=== PATIENT | male | born 1940 | race Caucasian/White ===

== ENCOUNTER 2016-07-25 07:50 | Emergency (ER) | payer OTHER, BC ==
[~2016-07-25] VITALS: Ht 185.4 cm; Wt 95.3 kg
[~2016-07-25 07:50] MED LIST: ALLOPURINOL 30300 M2 PO; AMLODIPINE BESY10 MG PO; ASPIRIN325; CIPRO250 M1 PO; EXCEDRIN CAPLE1 EACH PO; FISH OIL 1,0001 EAC5 PO; FISHOIL; FLUZONE 2045 MCG/011; GLUCOPHAGE500 MG PO; LISINOPRIL10 MG PO; LOVAZA1000 MG PO; NORVASC10 MG PO; SIMVASTATIN20 MG; SIMVASTATIN20 MG PO; TAMSULOSIN HCL0.4 MG PO; ZESTRIL10 MG PO
[2016-07-25 08:21] LABS: ABSOLUTE NEUTROPHILS 3.8 thou/uL (1.4-8.2); BASOPHILS 0.7 % (0.0-2.0); EOSINOPHILS 3.2 % (0.0-3.0); HEMATOCRIT 47.6 % (42.0-52.0); LYMPHOCYTES 27.1 % (24.0-44.0); MANUAL DIFF NO; MCH 30.9 pg (26.0-34.0); MCHC 33.5 g/dL (28.0-37.0); MONOCYTES 6.8 % (1.0-8.0); PLATELET COUNT 131 thou/uL (150-400); POLYS 62.2 % (36.0-66.0); RBC 5.18 mil/uL (4.50-6.00); RDW 14.5 % (10.5-14.5); WBC 6.2 thou/uL (4.0-11.0)
[2016-07-25 08:32] LABS: CALCIUM 9.3 mg/dL (8.5-10.1); CREATININE 1.4 mg/dL (0.7-1.3); POTASSIUM 3.4 mmol/L (3.5-5.1)
[2016-07-25 08:36] LABS: ALBUMIN 3.8 g/dL (3.4-5.0); TOTAL BILIRUBIN 0.7 mg/dL (<0.1-1.0); TOTAL PROTEIN 7.1 g/dL (6.4-8.2)
[2016-07-25 10:36] LABS: URINE BILIRUBIN NEGATIVE (Negative); URINE BLOOD NEGATIVE (Negative); URINE COLOR YELLOW; URINE GLUCOSE-RANDOM* NEGATIVE (Negative); URINE KETONES NEGATIVE (Negative); URINE LEUKOCYTES-REFLEX NEGATIVE (Negative); URINE PROTEIN (DIPSTICK) NEGATIVE (Negative); URINE SPECIFIC GRAVITY 1.015 (1.003-1.035)
[2016-07-25] MEDS ORDERED: NORFLEX100 MG PO (11:11)
[2016-07-25 11:53] VITALS: BP 139/78
== END 2016-07-25 11:54 | disposition home or self-care (01) ==
LOC: ER 07:50
PROVIDERS: Emergency Medicine
DX: M54.5 Low back pain (principal); I10 Essential (primary) hypertension; E78.00 Pure hypercholesterolemia, unspecified; K21.9 Gastro-esophageal reflux disease without esophagitis; F17.210 Nicotine dependence, cigarettes, uncomplicated; F10.99 Alcohol use, unspecified with unspecified alcohol-induced disorder; Z87.442 Personal history of urinary calculi; Z96.0 Presence of urogenital implants

== ENCOUNTER → 2016-11-17 | Outpatient (CLI) | payer OTHER, BC ==
[~2016-11-17] MED LIST changes: +NORFLEX100 MG PO
== END ==
LOC: EDSTATUS 12:03 → MRI 12:05
DX: M47.896 Other spondylosis, lumbar region (principal)